=== PATIENT | female | born 1980 ===

== ENCOUNTER 2017-04-09 20:33 | Emergency (ER) | payer OTHER ==
[2017-04-09 20:33] VITALS: BMI 24.1
[2017-04-09 20:37] VITALS: BP 142/83; PULSE 80; RESP 16; TEMP 98.6; O2SAT 98
--- NOTE | 2017-04-09 20:56 | ED PDOC ---
Syncope/Near Syncope/Dizziness Time Seen by Provider: 04/09/17 20:43 Chief Complaint (Nursing): Syncope Chief Complaint (Provider): dizziness History Per: Patient History/Exam Limitations: no limitations Onset/Duration Of Symptoms: Days (1) Current Symptoms Are (Timing): Still Present Additional History Per: Patient Additional Complaint(s): 36 y/o female brought in by EMS for evaluation of near-syncopal episode. Patient reports feeling dizzy all day, with associated multiple non-bilious vomiting episodes. Patient describes dizziness as "room spinning". Patient states after vomiting in the bathroom and attempting to walk back to the couch she felt lightheaded and fell to her knees. Patient notes similar episode to have happened after she got up and walked to the bathroom, hitting right side of head on floor. Denies LOC, headache, neck pain, vision changes, extremity numbness/weakness, chest pain, shortness of breath, palpitations, abdominal pain , urinary symptoms, recent travel, sick contacts. Past Medical History Reviewed: Historical Data, Nursing Documentation, Vital Signs Vital Signs: Last Vital Signs Temp 98.6 F 04/09/17 20:34 Pulse 80 04/09/17 20:34 Resp 16 04/09/17 20:34 BP 142/83 04/09/17 20:34 Pulse Ox 98 04/09/17 20:34 - Medical History PMH: Anxiety, Asthma - Surgical History Surgical History: Denies: Back Surgery - Family History Family History: States: No Known Family Hx - Home Medications Home Medications: Ambulatory Orders Medication Instructions Recorded Azithromycin [Zithromax] 250 mg PO DAILY #6 cap 12/01/13 Naproxen [Naprosyn] 500 mg PO Q12H #20 tab 12/01/13 Cyclobenzaprine HCl [Flexeril] 10 mg PO Q8 PRN #12 tab 09/27/14 Naproxen [Naprosyn] 375 mg PO Q8 PRN #20 tab 09/27/14 Oxycodone HCl/Acetaminophen 1 tab PO Q8 PRN #12 tab 09/27/14 [Percocet 325 mg-5 mg] Famotidine [Pepcid] 20 mg PO BID #20 tab 04/06/16 Ondansetron ODT [Zofran ODT] 4 mg PO Q8H PRN #20 odt 04/06/16 Clindamycin [Cleocin] 300 mg PO TID #21 cap 07/18/16 oxyCODONE/Acetaminophen [Percocet 1 ea PO Q6 PRN #12 tab 07/18/16 5/325 mg Tab] Meclizine [Meclizine*] 25 mg PO TID PRN #21 tab 04/09/17 Ondansetron ODT [Zofran ODT] 4 mg PO Q8 PRN #10 odt 04/09/17 - Allergies Allergies/Adverse Reactions: Allergies Allergy/AdvReac Type Severity Reaction Status Date / Time Penicillins Allergy RASH Verified 07/18/16 08:31 Review of Systems ROS Statement: Except As Marked, All Systems Reviewed And Found Negative Gastrointestinal: Positive for: Nausea, Vomiting Neurological: Positive for: Dizziness Physical Exam - Reviewed Nursing Documentation Reviewed: Yes Vital Signs Reviewed: Yes - Physical Exam Appears: Positive for: Well, Non-toxic, No Acute Distress Head Exam: Positive for: NORMAL INSPECTION. Negative for: ATRAUMATIC (tender to palpate right frontal scalp; no swelling, ecchymosis, abrasion noted) Skin: Positive for: Normal Color Eye Exam: Positive for: Normal appearance, EOMI, PERRL, Nystagmus (horizontal b/ l) ENT: Positive for: Normal ENT Inspection Cardiovascular/Chest: Positive for: Regular Rate, Rhythm Respiratory: Positive for: Normal Breath Sounds Gastrointestinal/Abdominal: Positive for: Normal Exam Back: Positive for: Normal Inspection Extremity: Positive for: Normal ROM Neurologic/Psych: Positive for: Alert, Oriented - Laboratory Results Result Diagrams: 04/09/17 21:23 04/09/17 21:23 - ECG ECG: Positive for: Viewed By Me (reviewed by ED attending) ECG Rhythm: Positive for: Sinus Rhythm O2 Sat by Pulse Oximetry: 98 Pulse Ox Interpretation: Normal - Progress ED Course And Treament: labs, ekg, CT head, IV fluids, IV zofran, PO meclizine EXAM: CT Head Without Intravenous Contrast EXAM DATE/TIME: 04/09/2017 8:52 PM CLINICAL HISTORY: 36 years old, female; Signs and symptoms; Dizziness TECHNIQUE: Axial computed tomography images of the head/brain without intravenous contrast. All CT scans at this facility use one or more dose reduction techniques, viz.: automated exposure control; ma/kV adjustment per patient size (including targeted exams where dose is matched to indication; i.e. head); or iterative reconstruction technique. Coronal and sagittal reformatted images were created and reviewed. COMPARISON: There are no prior studies for comparison. FINDINGS: Brain: Ventricles are normal in size and configuration. There is no midline shift. There are no intraaxial or extra-axial mass lesions or areas of hemorrhage. There are no abnormal fluid collections. Garcia-white differentiation is maintained. Ventricles: See above. Bones: Cranial vault is intact. Soft tissues: unremarkable Sinuses: There is no acute sinusitis. Ears and mastoids: Middle ears and mastoids are unremarkable Orbits: Orbital contents are unremarkable. IMPRESSION: No acute intracranial abnormality On re-eval, patient states she is feeling better. Tolerated PO Rx Zofran, Meclizine provided. Advised follow up PMD 2-3 days. Return precautions given. Disposition - Clinical Impression Clinical Impression: Dizziness, Vomiting, Near syncope - Patient ED Disposition Is Patient to be Admitted: No Counseled Patient/Family Regarding: Studies Performed, Diagnosis, Need For Followup, Rx Given - Disposition Disposition: Routine/Home Disposition Time: 23:24 Condition: IMPROVED Prescriptions: Meclizine [Meclizine*] 25 mg PO TID PRN #21 tab PRN Reason: Dizziness Ondansetron ODT [Zofran ODT] 4 mg PO Q8 PRN #10 odt PRN Reason: Nausea/Vomiting Instructions: Dizziness (ED), Acute Nausea and Vomiting (ED), Near Syncope (ED) Forms: [employer] ([place])
[2017-04-09] MEDS: Sodium Chloride 0.9% 1,000 ML IV STA (21:24)
[2017-04-09 21:34] LABS: BASO % 0.3 % (0.0-2.0); EOS # 0.2 K/uL (0.0-0.7); EOS % 1.7 % (0.0-4.0); HEMOGLOBIN 14.8 g/dL (12.0-16.0); LYMPH # 3.2 K/uL (1.0-4.3); LYMPH % 33.3 % (20.0-40.0); MEAN CELL VOLUME 87.7 fl (81.0-99.0); MEAN CORPUSCULAR HEMOGLOBIN 29.4 pg (27.0-31.0); MEAN CORPUSCULAR HGB CONC 33.5 g/dL (33.0-37.0); MONO # 0.6 K/uL (0.0-0.8); MONO % 6.6 % (0.0-10.0); NEUT # 5.5 K/uL (1.8-7.0); NEUT % 58.1 % (50.0-75.0); NRBC % 0.1 % (0.0-0.0); RBC 5.05 Mil/uL (3.80-5.20); RED CELL DISTRIBUTION WIDTH 14.1 % (11.5-14.5); WHITE BLOOD COUNT 9.5 K/uL (4.8-10.8)
[2017-04-09 21:41] LABS: ALB/GLOB RATIO 1.3 (1.0-2.1); ALBUMIN 4.2 g/dL (3.5-5.0); ALT/SGPT 16 U/L (9-52); AST/SGOT 17 U/L (14-36); BLOOD UREA NITROGEN 10 mg/dl (7-17); CALCIUM 9.3 mg/dL (8.4-10.2); GFR AFRICAN-AMERICAN > 60; GFR NON-AFRICAN AMERICAN > 60
--- NOTE | 2017-04-09 22:22 | CT ---
EXAM: CT Head Without Intravenous Contrast EXAM DATE/TIME: 04/09/2017 8:52 PM CLINICAL HISTORY: 36 years old, female; Signs and symptoms; Dizziness TECHNIQUE: Axial computed tomography images of the head/brain without intravenous contrast. All CT scans at this facility use one or more dose reduction techniques, viz.: automated exposure control; ma/kV adjustment per patient size (including targeted exams where dose is matched to indication; i.e. head); or iterative reconstruction technique. Coronal and sagittal reformatted images were created and reviewed. COMPARISON: There are no prior studies for comparison. FINDINGS: Brain: Ventricles are normal in size and configuration. There is no midline shift. There are no intra-axial or extra-axial mass lesions or areas of hemorrhage. There are no abnormal fluid collections. Garcia-white differentiation is maintained. Ventricles: See above. Bones: Cranial vault is intact. Soft tissues: unremarkable Sinuses: There is no acute sinusitis. Ears and mastoids: Middle ears and mastoids are unremarkable Orbits: Orbital contents are unremarkable. IMPRESSION: No acute intracranial abnormality
[2017-04-09] MEDS: Potassium Chloride 20 mEq ER Tab PO ONE (22:40)
[2017-04-09] MEDS ORDERED: Potassium Chloride 20 mEq ER Tab PO ONE ×2 (22:49→22:55)
--- NOTE | 2017-04-11 11:21 | CARD ---
APPROVED REPORT EKG Measurement Heart [id number] <Conclusion> Sinus rhythm with 1st degree AV block Otherwise normal ECG
== END 2017-04-09 23:37 | disposition home or self-care (01) ==
LOC: H.ER 20:33
DX: R55 Syncope and collapse (principal); R11.2 Nausea with vomiting, unspecified; F41.9 Anxiety disorder, unspecified; J45.909 Unspecified asthma, uncomplicated; Z88.0 Allergy status to penicillin
CPT/HCPCS: 70450; 80053; 81025; 82948; 85025; 93005; 96374; 96376; 99285; J2405; J7040